=== PATIENT | male | born 1975 | race Caucasian/White ===

== ENCOUNTER 2017-11-12 07:17 | Emergency (ER) | payer OTHER ==
[2017-11-12] MEDS ORDERED: HYDROmorphONE 1 MG/ML SYG IM (07:35)
[2017-11-12] MEDS: KETOROLAC 15 MG INJ IV (07:46)
[2017-11-12] MEDS: OXYCODONE/ACETAMINOPHEN (5/325) TAB PO (07:47)
[2017-11-12] MEDS: ONDANSETRON (ODT) 4 MG TAB ODT (07:47)
== END 2017-11-12 09:49 | disposition home or self-care (01) ==
LOC: E/R 07:17
DX: K80.20 Calculus of gallbladder without cholecystitis without obstruction (principal); I10 Essential (primary) hypertension
CPT/HCPCS: 96374; 99284-25

== ENCOUNTER 2017-11-19 01:23 | Inpatient (IN) | payer OTHER ==
[2017-11-19] MEDS: HYDROmorphONE 0.5 MG/0.5 ML SYG IV ×4 (03:31→15:24)
[2017-11-19] MEDS: ONDANSETRON 4 MG INJ IV (03:31)
[2017-11-19] MEDS: SOD CHLORIDE 0.9% 1,000 ML IV ×4 (03:33→22:27)
[2017-11-19 03:44] LABS: ADD MAN DIFF? NO
[2017-11-19 04:01] LABS: BASOPHILS % 0.3 % (0.0-2.0); EOSINOPHILS # 0.1 10^3/ul (0.0-0.5); EOSINOPHILS % 0.4 % (0.0-7.0); HEMATOCRIT 38.1 % (42.0-52.0); HEMOGLOBIN 13.9 g/dl (14.0-18.0); LYMPHOCYTES # 1.3 10^3/ul (0.8-2.9); LYMPHOCYTES % 9.2 % (15.0-51.0); MEAN CORPUSCULAR HGB CONC 36.5 g/dl (32.0-37.0); MEAN CORPUSCULAR VOLUME 90.5 fl (82.0-101.0); MEAN PLATELET VOLUME 9.3 fl (7.4-10.4); MONOCYTE # 0.6 10^3/ul (0.3-0.9); MONOCYTES % 4.5 % (0.0-11.0); NEUTROPHIL # 11.9 10^3/ul (1.6-7.5); NEUTROPHILS % 84.9 % (39.0-77.0); PLATELET COUNT 260 10^3/UL (140-415); RED BLOOD COUNT 4.21 10^6/ul (4.70-6.10); RED CELL DISTRIBUTION WIDTH 11.6 % (11.5-14.5)
[2017-11-19 04:16] LABS: ALANINE AMINOTRANSFERASE 30 IU/L (13-69); ALBUMIN 4.5 g/dl (3.3-4.9); ALBUMIN/GLOBULIN RATIO 1.45; ALKALINE PHOSPHATASE 90 IU/L (42-121); ANION GAP 18 (8-16); ASPARTATE AMINO TRANSFERASE 24 IU/L (15-46); BILIRUBIN,INDIRECT 0.5 mg/dl (0-1.1); BILIRUBIN,TOTAL 0.5 mg/dl (0.2-1.3); BLOOD UREA NITROGEN 13 mg/dl (7-20); CALCIUM 9.3 mg/dl (8.4-10.2); CARBON DIOXIDE 26 mmol/L (21-31); CHLORIDE 105 mmol/L (97-110); CREATININE 1.04 mg/dl (0.61-1.24); GLUCOSE 123 mg/dl (70-220); LIPASE 104 U/L (23-300); POTASSIUM 3.8 mmol/L (3.5-5.1); SODIUM 145 mmol/L (135-144); TOTAL PROTEIN 7.6 g/dl (6.1-8.1)
[2017-11-19] MEDS: PIPER-TAZO 3.375 GM IV (PMX) 100 ML IVPB ×4 (05:55→23:58)
[2017-11-19] MEDS ORDERED: ONDANSETRON 4 MG INJ IV (06:00)
[2017-11-19] MEDS ORDERED: NACL 0.9% 3 ML SYG IV (06:00)
[2017-11-19] MEDS: ACETAMINOPHEN 325 MG TAB PO (20:59)
[2017-11-20] MEDS: HYDROmorphONE 0.5 MG/0.5 ML SYG IV ×2 (03:08→11:53)
[2017-11-20] MEDS: PIPER-TAZO 3.375 GM IV (PMX) 100 ML IVPB ×4 (05:28→23:49)
[2017-11-20 05:56] LABS: ADD MAN DIFF? NO
[2017-11-20 06:12] LABS: BASOPHILS % 0.2 % (0.0-2.0); EOSINOPHILS # 0.1 10^3/ul (0.0-0.5); EOSINOPHILS % 0.9 % (0.0-7.0); HEMATOCRIT 39.3 % (42.0-52.0); HEMOGLOBIN 13.9 g/dl (14.0-18.0); LYMPHOCYTES # 1.7 10^3/ul (0.8-2.9); LYMPHOCYTES % 13.3 % (15.0-51.0); MEAN CORPUSCULAR HGB CONC 35.4 g/dl (32.0-37.0); MEAN CORPUSCULAR VOLUME 93.3 fl (82.0-101.0); MEAN PLATELET VOLUME 9.4 fl (7.4-10.4); MONOCYTE # 1.4 10^3/ul (0.3-0.9); MONOCYTES % 10.5 % (0.0-11.0); NEUTROPHIL # 9.7 10^3/ul (1.6-7.5); NEUTROPHILS % 74.6 % (39.0-77.0); PLATELET COUNT 238 10^3/UL (140-415); RED BLOOD COUNT 4.21 10^6/ul (4.70-6.10); RED CELL DISTRIBUTION WIDTH 11.9 % (11.5-14.5)
[2017-11-20 06:38] LABS: ALANINE AMINOTRANSFERASE 22 IU/L (13-69); ALBUMIN/GLOBULIN RATIO 1.33; ALKALINE PHOSPHATASE 68 IU/L (42-121); ANION GAP 14 (8-16); ASPARTATE AMINO TRANSFERASE 23 IU/L (15-46); BLOOD UREA NITROGEN 7 mg/dl (7-20); CALCIUM 8.7 mg/dl (8.4-10.2); CARBON DIOXIDE 28 mmol/L (21-31); CHLORIDE 105 mmol/L (97-110); CHOL/HDL RATIO 3.5 RATIO; CHOLESTEROL 133 mg/dl (100-200); CREATININE 0.86 mg/dl (0.61-1.24); GLUCOSE 96 mg/dl (70-220); HDL CHOLESTEROL 38 mg/dl (27-67); LDL CHOLESTEROL,CALCULATED 85 mg/dl; MAGNESIUM 1.9 mg/dl (1.7-2.5); POTASSIUM 3.7 mmol/L (3.5-5.1); SODIUM 143 mmol/L (135-144); TRIGLYCERIDES 50 mg/dl (0-149)
[2017-11-20 08:30] LABS: HEMOGLOBIN A1C 4.9 % (0-5.9)
[2017-11-20] MEDS: SOD CHLORIDE 0.9% 1,000 ML IV (11:38)
[2017-11-20] MEDS: D5-NS + KCL 20 MEQ 1,000 ML IV ×2 (17:22→21:14)
[2017-11-20] MEDS ORDERED: ROCURONIUM 50 MG INJ (17:27)
[2017-11-20] MEDS ORDERED: CEFAZOLIN 1 GM INJ (17:27)
[2017-11-20] MEDS ORDERED: PROPOFOL 20 ML (17:27)
[2017-11-20] MEDS ORDERED: ROPIVACAINE 0.5 % 30 ML VIAL (17:27)
[2017-11-20] MEDS ORDERED: MIDAZOLAM 1 MG/ML 2 ML INJ (17:27)
[2017-11-20] MEDS ORDERED: HYDROCODONE/APAP (5/325) TAB PO (17:30)
[2017-11-20] MEDS ORDERED: IBUPROFEN 600 MG TAB PO (17:30)
[2017-11-20] MEDS ORDERED: NACL 0.9% 3 ML SYG IV (17:30)
[2017-11-20] MEDS ORDERED: ACETAMINOPHEN 325 MG TAB PO (17:30)
[2017-11-20] MEDS ORDERED: ONDANSETRON 4 MG INJ IV ×2 (17:30→19:00)
[2017-11-20] MEDS ORDERED: BUPIVACAINE 0.25% (MPF) 30 ML INJ (17:43)
[2017-11-20] MEDS ORDERED: LIDOCAINE 1%/EPI 30 ML INJ (17:43)
[2017-11-20] MEDS: BUPIVACAINE 0.25% (STERILE-PAK) 30 ML INJ INJ (17:45)
[2017-11-20] MEDS: LIDOCAINE 1%/EPI 30 ML INJ INJ (17:45)
[2017-11-20] MEDS ORDERED: PIPER-TAZO 3.375 GM IV (PMX) 100 ML IVPB (18:00)
[2017-11-20] MEDS ORDERED: PHENYLephrine (100 MCG/ML) 5ML SYG (18:02)
[2017-11-20] MEDS ORDERED: METOCLOPRAMIDE 10 MG INJ (18:20)
[2017-11-20] MEDS ORDERED: KETOROLAC 30 MG INJ (18:20)
[2017-11-20] MEDS ORDERED: DEXAMETHASONE 4 MG/ML 1 ML INJ (18:20)
[2017-11-20] MEDS ORDERED: SUGAMMADEX SODIUM 200 MG/2 ML VIAL IV (18:20)
[2017-11-20] MEDS ORDERED: ONDANSETRON 4 MG INJ (18:20)
[2017-11-20] MEDS ORDERED: hydrALAzine 20 MG INJ (18:21)
[2017-11-20] MEDS ORDERED: LABETALOL HCL 20MG INJ (18:27)
[2017-11-20] MEDS ORDERED: DIPHENHYDRAMINE 50 MG INJ IV (19:00)
[2017-11-20] MEDS ORDERED: EPHEDrine SULFATE 50 MG/5 ML SYG IV (19:00)
[2017-11-20] MEDS ORDERED: MEPERIDINE 25 MG INJ IV (19:00)
[2017-11-20] MEDS ORDERED: HYDROmorphONE (0.2 MG/ML) 10ML SYG IV ×3 (19:00)
[2017-11-20] MEDS ORDERED: METOCLOPRAMIDE 10 MG INJ IV (19:00)
[2017-11-20] MEDS ORDERED: LABETALOL HCL 20MG INJ IV (19:00)
[2017-11-20] MEDS ORDERED: ALBUMIN HUMAN 5% 250 ML IV (19:00)
[2017-11-20] MEDS ORDERED: FENTAnyl 50 MCG/ML VIAL IV ×3 (19:00)
[2017-11-20] MEDS ORDERED: hydrALAzine 20 MG INJ IV (19:00)
[2017-11-21] MEDS: PIPER-TAZO 3.375 GM IV (PMX) 100 ML IVPB ×3 (06:18→17:42)
[2017-11-21] MEDS: ENOXAPARIN 40 MG/0.4 ML SYG SC (06:54)
[2017-11-21 07:18] LABS: ADD MAN DIFF? NO
[2017-11-21] MEDS: SOD CHLORIDE 0.9% 1,000 ML IV (07:35)
[2017-11-21 07:48] LABS: ALANINE AMINOTRANSFERASE 26 IU/L (13-69); ALBUMIN 3.3 g/dl (3.3-4.9); ALBUMIN/GLOBULIN RATIO 1.13; ALKALINE PHOSPHATASE 59 IU/L (42-121); ANION GAP 15 (8-16); ASPARTATE AMINO TRANSFERASE 30 IU/L (15-46); BILIRUBIN,INDIRECT 0.6 mg/dl (0-1.1); BILIRUBIN,TOTAL 0.6 mg/dl (0.2-1.3); BLOOD UREA NITROGEN 9 mg/dl (7-20); CALCIUM 8.3 mg/dl (8.4-10.2); CARBON DIOXIDE 23 mmol/L (21-31); CHLORIDE 110 mmol/L (97-110); CREATININE 0.83 mg/dl (0.61-1.24); GLUCOSE 113 mg/dl (70-220); POTASSIUM 3.6 mmol/L (3.5-5.1); SODIUM 144 mmol/L (135-144); TOTAL PROTEIN 6.2 g/dl (6.1-8.1)
[2017-11-21 08:12] LABS: BASOPHILS % 0.1 % (0.0-2.0); HEMATOCRIT 33.3 % (42.0-52.0); LYMPHOCYTES # 0.9 10^3/ul (0.8-2.9); LYMPHOCYTES % 7.6 % (15.0-51.0); MEAN CORPUSCULAR HEMOGLOBIN 33.2 pg (29.0-33.0); MEAN CORPUSCULAR VOLUME 92.2 fl (82.0-101.0); MEAN PLATELET VOLUME 9.6 fl (7.4-10.4); MONOCYTE # 1.2 10^3/ul (0.3-0.9); MONOCYTES % 10.1 % (0.0-11.0); NEUTROPHIL # 9.6 10^3/ul (1.6-7.5); NEUTROPHILS % 81.9 % (39.0-77.0); PLATELET COUNT 226 10^3/UL (140-415); RED BLOOD COUNT 3.61 10^6/ul (4.70-6.10); RED CELL DISTRIBUTION WIDTH 11.7 % (11.5-14.5)
[2017-11-21 08:12] LABS: WHITE BLOOD COUNT 11.8 10^3/ul (4.8-10.8)
[2017-11-21] MEDS: D5-NS + KCL 20 MEQ 1,000 ML IV (08:43)
[2017-11-21] MEDS: HYDROmorphONE 0.5 MG/0.5 ML SYG IV ×2 (10:03→16:06)
[2017-11-21 12:50] LABS: FREE T3 3.21 pg/ml (2.77-5.27)
[2017-11-21 13:04] LABS: THYROID STIMULATING HORMONE 0.176 MIU/L (0.465-4.680)
== END 2017-11-21 19:56 | disposition home or self-care (01) | DRG 419 ==
LOC: E/R 01:23 → PP2 05:15
PROC: 0FT44ZZ Resection of Gallbladder, Percutaneous Endoscopic Approach (ICD-10-PCS; principal; 2017-11-20 17:30)
DX: K81.0 Acute cholecystitis (principal); E66.3 Overweight; Z68.27 Body mass index [BMI] 27.0-27.9, adult
CPT/HCPCS: 76705; 80053; 80061; 83036; 83690; 83735; 84439; 84443; 84481; 85025; 88304

== ENCOUNTER 2018-01-06 07:38 | Emergency (ER) | payer OTHER ==
[2018-01-06 11:39] LABS: ADD MAN DIFF? NO
[2018-01-06 11:49] LABS: BASOPHILS % 0.4 % (0.0-2.0); EOSINOPHILS # 0.1 10^3/ul (0.0-0.5); EOSINOPHILS % 1.5 % (0.0-7.0); HEMATOCRIT 42.6 % (42.0-52.0); HEMOGLOBIN 15.3 g/dl (14.0-18.0); LYMPHOCYTES # 2.1 10^3/ul (0.8-2.9); LYMPHOCYTES % 29.5 % (15.0-51.0); MEAN CORPUSCULAR HEMOGLOBIN 33.6 pg (29.0-33.0); MEAN CORPUSCULAR HGB CONC 35.9 g/dl (32.0-37.0); MEAN CORPUSCULAR VOLUME 93.4 fl (82.0-101.0); MEAN PLATELET VOLUME 9.3 fl (7.4-10.4); MONOCYTE # 0.7 10^3/ul (0.3-0.9); MONOCYTES % 9.6 % (0.0-11.0); NEUTROPHIL # 4.2 10^3/ul (1.6-7.5); NEUTROPHILS % 58.3 % (39.0-77.0); PLATELET COUNT 256 10^3/UL (140-415); RED BLOOD COUNT 4.56 10^6/ul (4.70-6.10); RED CELL DISTRIBUTION WIDTH 11.9 % (11.5-14.5)
[2018-01-06 11:49] LABS: WHITE BLOOD COUNT 7.3 10^3/ul (4.8-10.8)
[2018-01-06 12:14] LABS: ANION GAP 15 (8-16); BLOOD UREA NITROGEN 10 mg/dl (7-20); CALCIUM 9.3 mg/dl (8.4-10.2); CARBON DIOXIDE 28 mmol/L (21-31); CHLORIDE 104 mmol/L (97-110); CREATININE 0.89 mg/dl (0.61-1.24); GLUCOSE 97 mg/dl (70-220); POTASSIUM 3.9 mmol/L (3.5-5.1); SODIUM 143 mmol/L (135-144)
[2018-01-06 12:26] LABS: TROPONIN-I < 0.012 ng/ml (0.00-0.12)
== END 2018-01-06 12:41 | disposition home or self-care (01) ==
LOC: FTE 07:38
DX: R07.9 Chest pain, unspecified (principal)
CPT/HCPCS: 36415; 71045; 80048; 84484; 85025; 93005; 99285-25